=== PATIENT | female | born 1965 | race Caucasian/White ===

== ENCOUNTER → 2016-04-04 08:12 | Outpatient (CLI) | payer MEDICARE, BC ==
[2011-04-04 12:11] VITALS: BMI 20.9
[~2016-04-04 08:12] MED LIST: ATIVAN0.5 MG PO; LYRICA75 MG PO
[2016-05-27 08:29] VITALS: BMI 34.8
== END | disposition home or self-care (01) ==
LOC: D.CT 08:12 → D.MRI 08:30 → D.CT 08:30
DX: R07.81 Pleurodynia (principal)

== ENCOUNTER 2016-05-27 07:43 | Outpatient (CLI) | payer MEDICARE ==
[~2016-05-27] VITALS: Ht 157.5 cm; Wt 86.4 kg
[2016-05-27] MEDS ORDERED: ATIVAN0.5 MG PO (08:22)
[2016-05-27] MEDS ORDERED: LYRICA75 MG PO (08:22)
[2016-05-27 08:29] VITALS: BP 121/75; Ht 157.5 cm; Wt 86.4 kg
[2016-05-27 08:41] LABS: BASOPHILS 0.3 % (0.0-2.0); EOSINOPHILS 1.7 % (0-7); HEMATOCRIT 42.8 % (36.0-48.0); HEMOGLOBIN 14.2 g/dL (12-16); IMMATURE GRANULOCYTES 0.1 % (0-5); MCHC 33.2 g/dL (31.0-37.0); MCV 90.5 fL (80.0-100.0); MEAN PLATELET VOLUME 11.6 fL (7.4-10.4); MONOCYTES 6.1 % (2-11); NEUTROPHILS 62.8 % (40-80); PLATELET COUNT 209 10x3/uL (130-400); RBC 4.73 10x6/uL (4.00-5.40); RDW 13.3 % (11.5-14.5); WBC 7.8 10x3/uL (4.8-10.8)
--- NOTE | 2016-05-27 08:47 | NUR ---
0835-DR COOPER PAGED AND CALLED BACK TO VERIFY THE WRITTEN PREOP ORDERS. STATES TO GIVE ATROPINE 0.6MG IM AND ALSO KIKE THE PHENERGAN 12.5MG TO BE GIVEN IV. READ BACK AND VERIFIED MULTIPLE TIMES THAT THIS WAS THE ABOVE MEDICATIONS TO GIVE. PER DR COOPER
[2016-05-27 09:08] LABS: APTT 29.6 SECONDS (22.8-39.4); INR 0.89 (0.85-1.17); PROTIME 11.9 SECONDS (11.6-15.0)
--- NOTE | 2016-05-27 15:20 | NUR ---
PATIENT MOVES AROUND ROOM, VOIDS LARGE AMOUNT IN TOILET, AMBULATES WITHOUT DIFFICULTY. RIGHT HAND PIV DC'D WITH TIP INTACT. PATIENT DRESSING IN PERSONAL CLOTHING. DISCHARGE INSTRUCTIONS REVIEWED WITH PATIENT, AWAITING TO PROVIDE TRANSPORTATION, PATIENT STATES HAS TO GET OFF WORK
--- NOTE | 2016-05-27 16:00 | NUR ---
PATIENT DISCHARGED HOME VIA WHEELCHAIR TO PRIVATE VEHICLE WITH SPOUSE
[2016-05-29 16:17] LABS: AFB SPECIMEN PROCESSING Concentration (())
[2016-05-30 16:15] LABS: FUNGUS STAIN Final report (())
--- NOTE | 2016-06-13 13:49 | PRO ---
PATIENT:YAEL PIERCE MEDICAL RECORD: [id number] : 61 LOCATION:[facility] ADMISSION DATE: 05/27/16 PROCEDURE PERFORMED BY: LISA COOPER MD DATE OF PROCEDURE: 05/27/2016 PROCEDURE: Fiberoptic bronchoscopy. INDICATION: Ms. Pierce is a 50-year-old female who has pneumonia, right lower lobe. After a couple of course of antibiotic, it was not clearing up. Fiberoptic bronchoscopy was carried out to inspect the airway as well as to get good specimen for culture and sensitivity. PROCEDURE: Monitoring EKG, pulse and blood pressure monitored throughout the procedure. MEDICATIONS: Versed 6 mg IV in divided doses, fentanyl 100 mcg IV in divided doses, Phenergan 12.5 mg IV times 1, atropine 0.6 mg IV times 1. LABORATORY DATA PROCEDURE IN DETAIL: After signing the consent form, the fiberoptic bronchoscope was easily passed through the mouth. The epiglottis was normal. The vocal cords were normal, moving equally on phonation. The main trachea was normal. The juancarlos was sharp. The left main bronchus subsegment to the left upper lobe lingula, left lower lobe within normal range. No endobronchial lesion was seen. The right main bronchus was normal. The subsegment to the right upper lobe within normal range. The right middle lobe, right lower lobe, all segment within normal range. No endobronchial lesion was seen. There was no yellowish secretion was seen. There were whitish secretions coming mainly from the right lower lobe. Specimen washing was obtained and sent for routine culture and sensitivity, AFB and fungus and cytology. Overall, the patient tolerated the procedure very well. TRANSINT:[id number] Voice Confirmation ID: [id number] DOCUMENT ID: [id number] LISA COOPER MD at 1349 CC: TRAVIS CHEUNG DO [id number] DICTATION DATE: 05/27/16 1034 CASE RESOLUTION SPECIALIST: 05/27/16 1202 DEP CLI 05/27/16 [id number] [place] [address]
[2016-06-25 10:19] LABS: FUNGUS MYCOLOGY CULTURE Final report (())
[2016-07-18 09:15] LABS: ACID FAST CULTURE Negative (()); ACID FAST SMEAR Negative (())
== END 2016-05-27 16:00 | disposition home or self-care (01) ==
LOC: D.OPS 07:43
PROVIDERS: Internal Medicine Pulmonary Disease
DX: J18.8 Other pneumonia, unspecified organism (principal)

== ENCOUNTER 2017-03-03 14:38 | Emergency (ER) | payer MEDICARE ==
[2016-05-27 08:29] VITALS: BMI 34.8
== END 2017-03-03 18:03 | disposition home or self-care (01) ==
LOC: D.ER 14:38
DX: S52.102A Unspecified fracture of upper end of left radius, initial encounter for closed fracture (principal); V43.52XA Car driver injured in collision with other type car in traffic accident, initial encounter; Y93.89 Activity, other specified; Y92.410 Unspecified street and highway as the place of occurrence of the external cause; M32.9 Systemic lupus erythematosus, unspecified; F17.200 Nicotine dependence, unspecified, uncomplicated